=== PATIENT | male | born 1975 | race Caucasian/White ===

== ENCOUNTER 2016-09-17 14:18 | Outpatient (CLI) | payer BC, OTHER ==
--- NOTE | 2016-09-17 20:16 | RAD ---
RIGHT KNEE THREE VIEWS: Date: 09-17-16 FINDINGS: No fracture or joint effusion was seen. Weight bearing AP views showed no real joint space narrowin g of significance. There may be a milvia of ossification just lateral to the lateral femoral condyle that could be from an old lateral ligamentous injury here. IMPRESSION: No acute findings. No arthritic changes of real significance. POS: HOME
--- NOTE | 2016-09-17 20:17 | RAD ---
LEFT KNEE TWO VIEWS: Date: 09-17-16 Comparison: Views of the right knee. FINDINGS: The appearance is reasonably symmetrical. There is no dramatic joint space narrowing and no signifi cant osteophytes. No joint effusion, fracture, or area of bony destruction was seen. IMPRESSION: No significant finding. POS: HOME
== END 2016-09-17 14:19 | disposition home or self-care (01) ==
LOC: BURRAD 14:18
PROVIDERS: ATTEND Family Medicine
DX: M17.0 Bilateral primary osteoarthritis of knee (principal)